=== PATIENT | male | born 1960 | race Two or more races ===

== ENCOUNTER 2024-05-20 02:52 | Emergency (ER) | payer SELFPAY ==
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
== END 2024-05-20 03:46 ==
LOC: SERX 04:10
PROVIDERS: Emergency Provider Emergency Medicine
DX: Z02.89 Encounter for other administrative examinations (principal); R04.0 Epistaxis; V89.2XXA Person injured in unspecified motor-vehicle accident, traffic, initial encounter
CPT/HCPCS: 99281